=== PATIENT | female | born 1970 | race Caucasian/White ===

== ENCOUNTER 2022-11-16 00:13 | Inpatient (IN) | payer MEDICAID ==
[~2022-11-16] VITALS: Ht 154.9 cm; Wt 97.5 kg
--- NOTE | 2022-11-16 00:36 | NUR ---
Pt. assisted to the bathroom by Jony COLÓN
[2022-11-16] MEDS ORDERED: IV NORMAL SALINE 1000 ML BAG IV ONE (01:00)
[2022-11-16] MEDS ORDERED: PROCHLORPERAZINE EDISYLATE 10 MG/2 ML VIAL IV ONE ×2 (01:00→05:30)
[2022-11-16 01:15] LABS: HEMATOCRIT 41.9 % (31.2-41.9); MEAN CORPUSCULAR HEMOGLOBIN 27.5 uug (24.7-32.8); MEAN CORPUSCULAR VOLUME 84.5 fL (75.5-95.3); PLATELET COUNT (AUTO) 245 K/uL (179-408)
--- NOTE | 2022-11-16 01:18 | NUR ---
Seen and examined by Dr. Heller
--- NOTE | 2022-11-16 01:19 | NUR ---
IV inserted on R AC 20g noted, IV NS given per MD order.
[2022-11-16] MEDS ORDERED: ONDANSETRON 4 MG/2 ML VIAL ONE ×2 (01:25→01:27)
[2022-11-16 01:30] LABS: *BILIRUBIN,URIN NEGATIVE (NEGATIVE); *BLOOD, URINE NEGATIVE (NEGATIVE); *CLARITY,URINE CLEAR (CLEAR); *COLOR,URINE YELLOW (YELLOW); *KETONES,URINE TRACE (NEGATIVE); *UROBILINOGEN,URINE 0.2 E.U./dl (NORMAL); LEUKOCYTE ESTERASE ,URINE NEGATIVE (NEGATIVE); NITRITE, URINE NEGATIVE (NEGATIVE); PH,URINE 6.5 (5.0-8.0)
[2022-11-16] MEDS ORDERED: HYDROMORPHONE 1 MG/1 ML DISP.SYRIN IV ONE (01:30)
[2022-11-16 01:31] LABS: UGLUCOSE 2+ (NEGATIVE)
[2022-11-16 01:32] LABS: *URINE HCG, QUAL NEGATIVE (NEGATIVE); BILIRUBIN,DIRECT 0.2 mg/dL (0.0-0.2); BILIRUBIN,TOTAL 0.4 mg/dL (0.2-1.0); CREATININE 0.7 mg/dL (0.6-1.3); POTASSIUM 3.7 mmol/L (3.5-5.1); TOTAL PROTEIN, SERUM 7.4 g/dL (6.4-8.2)
[2022-11-16] MEDS ORDERED: HYDROMORPHONE 1 MG/1 ML DISP.SYRIN ONE (01:46)
[2022-11-16] MEDS ORDERED: SWABABLE VALVE TRANSFER SET EA MC ONE (02:36)
[2022-11-16] MEDS ORDERED: IV NORMAL SALINE 250 ML IV ONE (02:36)
[2022-11-16] MEDS ORDERED: IOHEXOL 300MG/ML 100 ML INFUS..BTL ONE (02:36)
--- NOTE | 2022-11-16 03:45 | NUR ---
Penelope swain in [facility] - 11/16/22 at 0412 by [id number] Gave SBAR report to Noemi alicea from [facility] for transfer.
--- NOTE | 2022-11-16 05:15 | NUR ---
Patient ambulated to the bathroom 1x assist. Voided clear yellow urine
[2022-11-16] MEDS ORDERED: MECLIZINE HCL 25 MG TABLET PO ONE (05:30)
[2022-11-16] MEDS ORDERED: METF-441 PO (05:59)
[2022-11-16] MEDS ORDERED: MECLIZINE HCL 25 MG TABLET ONE ×2 (06:14→06:21)
[2022-11-16] MEDS ORDERED: PROCHLORPERAZINE EDISYLATE 10 MG/2 ML VIAL ONE (06:14)
--- NOTE | 2022-11-16 06:15 | NUR ---
Pulled out Antivert 25mg, pill fell on floor. Wasted medication.
--- NOTE | 2022-11-16 07:22 | NUR ---
Report given to Adelia COLÓN
--- NOTE | 2022-11-16 07:25 | NUR ---
Received endorsement from Veronica COLÓN.
--- NOTE | 2022-11-16 09:17 | NUR ---
Pt okay to be admitted per insurance, called [facility].
--- NOTE | 2022-11-16 12:30 | NUR ---
Gave report to
--- NOTE | 2022-11-16 14:10 | NUR ---
Pt transported via wheelchair, accompanied by 1 RN and pt's son. V/S WNL, pt still has dizziness. Received by Nurse Hartmann.
--- NOTE | 2022-11-16 14:38 | NUR ---
52 YEAR OLD FEMALE RECEIVED TO ROOM 318 FOR DIZZINESS .PT IS AXOX4.CALL LIGHT WITH IN REACH VS ARE STABLE MD NOTIFIED FOR ADMISSION ORDERS
[2022-11-16 15:00] VITALS: BP 128/71
[2022-11-16] MEDS ORDERED: MORPHINE SULFATE 2 MG/1 ML DISP.SYRIN IV PRN (18:45)
[2022-11-16] MEDS ORDERED: DEXTROSE 50% 50 ML DISP.SYRIN IV PRN (18:45)
[2022-11-16] MEDS ORDERED: ACETAMINOPHEN 325 MG TABLET PO PRN (18:45)
[2022-11-16] MEDS ORDERED: MAG HYDROX/AL HYDROX/SIMETH 30 ML LIQUID UDC PO PRN (18:45)
[2022-11-16] MEDS ORDERED: ONDANSETRON 4 MG/2 ML VIAL IV PRN (18:45)
[2022-11-16] MEDS: IV NS 1000 ML 1,000 ML IV PRN (19:19)
[2022-11-16] MEDS: BLOOD SUGAR DIAGNOSTIC 1 EACH STRIP VI SCH (19:43)
[2022-11-16 20:00] VITALS: BP_SYST 121; BP_SYST 127; BP_DIAS 65; BP_DIAS 87
[2022-11-16] MEDS: INSULIN REGULAR, HUMAN 300 UNIT/3 ML VIAL SQ PRN (20:17)
[2022-11-17] VITALS: BP 114/67
[2022-11-17 04:00] VITALS: BP 104/59
[2022-11-17] MEDS: BLOOD SUGAR DIAGNOSTIC 1 EACH STRIP VI SCH ×3 (06:09→16:59)
[2022-11-17] MEDS ORDERED: PANTOPRAZOLE SODIUM 40 MG TABLET.DR PO SCH (07:00)
[2022-11-17 07:12] LABS: HEMATOCRIT 38.9 % (31.2-41.9); MEAN CORPUSCULAR HEMOGLOBIN 27.5 uug (24.7-32.8); MEAN CORPUSCULAR VOLUME 85.7 fL (75.5-95.3); PLATELET COUNT (AUTO) 212 K/uL (179-408)
[2022-11-17 07:46] LABS: THYROID STIMULATING HORMONE 0.412 mIU/mL (0.358-3.740)
[2022-11-17 07:48] LABS: BILIRUBIN,TOTAL 0.6 mg/dL (0.2-1.0); CREATININE 0.6 mg/dL (0.6-1.3); MAGNESIUM 2.1 mg/dL (1.8-2.4); POTASSIUM 3.7 mmol/L (3.5-5.1)
[2022-11-17] MEDS ORDERED: METFORMIN HCL 850 MG TABLET PO SCH (08:00)
[2022-11-17] MEDS: INSULIN REGULAR, HUMAN 300 UNIT/3 ML VIAL SQ PRN ×3 (08:40→17:00)
[2022-11-17] MEDS: IV NS 1000 ML 1,000 ML IV PRN (09:27)
[2022-11-17 12:00] VITALS: BP 110/67
[2022-11-17] MEDS ORDERED: METF-494 PO (12:29)
[2022-11-17] MEDS ORDERED: SITA100T PO (12:29)
[2022-11-17 16:00] VITALS: BP 117/60
--- NOTE | 2022-11-17 20:15 | NUR ---
Pt is in stable condition. Discharge teachings done. DC paperwork and home medications given to patients. Belongings list completed and signed by the pt. IV and ID band removed. IV site is clear and no reactions noted. Assisted pt via W/C together with her children. Safety precautions maintained.
[2022-11-18] MEDS ORDERED: METFORMIN HCL 850 MG TABLET PO SCH (08:00)
[2022-11-18] MEDS ORDERED: JANUVIA 100 MG PO SCH (09:00)
[2022-11-18] MEDS ORDERED: [UNRECOGNIZED DRUG - OTHER] PO SCH (09:00)
[2022-11-18] MEDS ORDERED: METFORMIN XR 500 MG TAB.SR.24H PO SCH (18:00)
== END 2022-11-17 20:25 | disposition home or self-care (01) | DRG 249 ==
LOC: ER 00:26 → EDBD 00:26 → TELE3 13:51
PROVIDERS: ADMIT Internal Medicine; ATTEND Internal Medicine
DX: A08.4 Viral intestinal infection, unspecified (principal); E87.20 Acidosis, unspecified; K76.0 Fatty (change of) liver, not elsewhere classified; R42 Dizziness and giddiness; E66.9 Obesity, unspecified; E86.0 Dehydration; M79.7 Fibromyalgia; Z20.822 Contact with and (suspected) exposure to COVID-19; Z90.710 Acquired absence of both cervix and uterus; E11.65 Type 2 diabetes mellitus with hyperglycemia; K43.9 Ventral hernia without obstruction or gangrene; M19.011 Primary osteoarthritis, right shoulder; Z68.41 Body mass index [BMI] 40.0-44.9, adult; Z79.84 Long term (current) use of oral hypoglycemic drugs; M75.101 Unspecified rotator cuff tear or rupture of right shoulder, not specified as traumatic; E88.09 Other disorders of plasma-protein metabolism, not elsewhere classified; T38.3X5A Adverse effect of insulin and oral hypoglycemic [antidiabetic] drugs, initial encounter; Y92.89 Other specified places as the place of occurrence of the external cause
CPT/HCPCS: 36415; 70450; 83605; 83690; 83735; 84100; 84443; 84484; 84703; 85025; 93005; A4663; G0378; J0780; J1170; J1815; J2405; J7040; J8597; Q9967